=== PATIENT | female | born 1970 | race Two or more races ===

== ENCOUNTER → 2016-08-14 | Outpatient (REF) | payer OTHER | LOC: M SFHCLERA 16:49 | PROVIDERS: ATTEND Nurse Practitioner Family | DX: R10.31 Right lower quadrant pain (principal) ==

== ENCOUNTER → 2016-08-21 | Outpatient (CLI) | payer OTHER ==
--- NOTE | 2016-08-21 13:38 | REPMRS ---
Patient History The patient states she has not had a clinical breast exam in over a year. No known family history of cancer. Digital Mammo Screening Bilat: August 21, 2016 - Exam #: [id number] Bilateral CC and MLO view(s) were taken. Technologist: Jessica Vazquez, Technologist Prior study comparison: February 07, 2010, bilateral digital mammo screening bilat, performed at [facility]. The patient states that there are no palpable abnormalities or other breast complaints. There has been no change in the appearance of the mammogram from the prior studies. There is extremely dense fibroglandular tissue which is fairly symmetric. There is no interval development of dominant mass, areas of architectural distortion, or clustered microcalcification typical of malignancy. ASSESSMENT: BI-RADS/ACR category 1 mammogram. Negative. Recommendation Routine screening mammogram in 1 year (for women over age 40). This mammogram was interpreted with the aid of an FDA-approved computer-aided dectection system. A. Negative x-ray reports should not delay biopsy if a dominant or clinically suspicious mass is present. B. Not all cancers are identified by mammography. C. Adenosis and dense breast may obscure an underlying neoplasm. Electronically Signed By: Thomas Andrade M.D. 08/21/16 [id number]
== END ==
LOC: M RAD 10:49
PROVIDERS: ATTEND Nurse Practitioner Family
DX: Z12.31 Encounter for screening mammogram for malignant neoplasm of breast (principal)

== ENCOUNTER 2017-02-01 13:37 | Emergency (ER) | payer OTHER ==
[2017-02-01] MEDS: NS 1,000 ML IV ×2 (14:26)
[2017-02-01] MEDS: ONDANSETRON 4MG/2ML VIAL (J2405) IV ×2 (14:26)
[2017-02-01] MEDS: MORPHINE 4 MG/ML 1ML SYRINGE IV ×2 (14:27)
[2017-02-01 14:33] LABS: BASO # 0.1 10^3/uL (0.0-0.2); BASO % 0.7 % (0.0-1.0); EOS # 0.1 10^3/uL (0.0-0.50); EOS % 1.4 % (0.0-3.0); IMMATURE GRANULOCYTE % 0.3 % (0-0); LYMPH # 3.2 10^3/uL (1.5-4.5); LYMPH % 32.9 % (24.0-44.0); MEAN CORPUSCULAR HEMOGLOBIN 28.3 pg (27.0-33.0); MEAN CORPUSCULAR VOLUME 85.8 fl (80.0-96.0); MONO # 0.5 10^3/uL (0.0-0.8); MONO % 4.9 % (0.0-5.0); NEUTROPHILS # 5.8 10^3/uL (1.8-7.7); NEUTROPHILS % 59.8 % (36.0-66.0); PLATELET COUNT, AUTOMATED 312 10^3/uL (150-450); RED CELL DISTRIBUTION WIDTH 13.4 % (11.5-14.5); WHITE BLOOD COUNT 9.8 10^3/uL (4.0-10.0)
[2017-02-01 14:49] LABS: KETONE, URINE AUTO RFX TRACE mg/dL (NEGATIVE); LEUKOCYTE ESTERASE UR AUTO RFX NEGATIVE (NEGATIVE); NITRITE, URINE AUTO RFX NEGATIVE (NEGATIVE); RBC, URINE AUTO RFX 1 /HPF (0-3); SPECIFIC GRAVITY UR AUTO RFX 1.003 (1.002-1.035); SQUAM EPITHELIAL CELL UR AURFX 0 /HPF (0-6); WBC, URINE AUTO RFX 0 /HPF (0-3)
[2017-02-01] MEDS ORDERED: ISOVUE-370 76% 100ML VIAL (Q9967) As Ordered ×2 (15:05)
[2017-02-01 15:06] LABS: ALKALINE PHOSPHATASE 78 U/L (45-117); ALT/SGPT 81 U/L (12-78); ANION GAP 8 MEQ/L (8-16); AST/SGOT 60 U/L (7-37); BILIRUBIN,DIRECT < 0.1 MG/DL (0.0-0.2); BILIRUBIN,TOTAL 0.5 MG/DL (0.2-1.0); BLOOD UREA NITROGEN 8 MG/DL (7-18); CALCIUM LEVEL 9.2 MG/DL (8.5-10.1); CARBON DIOXIDE LEVEL 26 MEQ/L (21-32); CHLORIDE LEVEL 104 MEQ/L (98-107); CREATININE FOR GFR 0.56 MG/DL (0.55-1.02); GLOMERULAR FILTRATION RATE > 60.0 (>58); GLUCOSE, FASTING 102 MG/DL (70-105); POTASSIUM SERUM 3.8 MEQ/L (3.5-5.1); SODIUM LEVEL 138 MEQ/L (136-145)
== END 2017-02-01 16:05 | disposition home or self-care (01) ==
LOC: M ED 13:37
DX: K80.50 Calculus of bile duct without cholangitis or cholecystitis without obstruction (principal)
CPT/HCPCS: J2405

== ENCOUNTER → 2017-02-07 | Outpatient (CLI) | payer OTHER | LOC: M RAD 09:03 | DX: R10.11 Right upper quadrant pain (principal) | CPT/HCPCS: J2805 ==

== ENCOUNTER → 2017-11-12 | Outpatient (CLI) | payer OTHER ==
[2017-11-12 15:51] LABS: ALBUMIN 4.3 GM/DL (3.2-5.2); ALBUMIN/GLOBULIN RATIO 1.13 (1.00-1.93); ALKALINE PHOSPHATASE 80 U/L (45-117); ALT/SGPT 35 U/L (12-78); AST/SGOT 24 U/L (7-37); BILIRUBIN,DIRECT 0.2 MG/DL (0.0-0.2); BILIRUBIN,TOTAL 0.7 MG/DL (0.2-1.0); CHOLESTEROL LEVEL 235 MG/DL (<200); FERRITIN 11 NG/ML (8-252); HDL CHOLESTEROL 50 MG/DL (>40); IRON (FE) 211 UG/DL (50-170); LDL CHOLESTEROL 123 MG/DL (<100); NON-HDL-C 185 MG/DL; PERCENT SATURATION 57.8 % (13.2-45.0); TOTAL IRON BINDING CAPACITY 365 UG/DL (250-450); TOTAL PROTEIN 8.1 GM/DL (6.4-8.2); TRIGLYCERIDES LEVEL 311 MG/DL (<150)
[2017-11-12 16:01] LABS: HEPATITIS B SURFACE ANTIBODY POSITIVE (POSITIVE)
[2017-11-12 16:11] LABS: HEPATITIS B SURFACE ANTIGEN NEGATIVE (NEGATIVE)
[2017-11-12 16:39] LABS: HEPATITIS C VIRUS ABY INDEX < 0.0 INDEX (<0.8)
[2017-11-12 16:41] LABS: HEPATITIS A ANTIBODY IGM NEGATIVE (NEGATIVE)
[2017-11-15 11:17] LABS: ALPHA 2-MACROGLOBULINS,QN 203 mg/dL (110-276); ALT (SGPT) P5P 32 IU/L (0-40); ANTI-MITOCHONDRIAL ANTIBODY 4.1 Units (0.0-20.0); ANTINUCLEAR ANTIBODIES DIRECT Negative (Negative); APOLIPOPROTEIN A-1 155 mg/dL (116-209); AST (SGOT) P5P 28 IU/L (0-40); BILIRUBIN, TOTAL 0.3 mg/dL (0.0-1.2); CERULOPLASMIN 25.2 mg/dL (19.0-39.0); CHOLESTEROL TOTAL 237 mg/dL (100-199); FIBROSIS SCORE 0.14 (0.00-0.21); GGT 69 IU/L (0-60); GLUCOSE, SERUM 108 mg/dL (65-99); HAPTOGLOBIN 153 mg/dL (34-200); HEIGHT 63 in (.); HEPATITIS A IgG TOTAL Positive (Negative); LIVER-KIDNEY MICROSOMAL ABY 1.6 Units (0.0-20.0); NASH SCORE 0.75 (0.25); STEATOSIS SCORE 0.73 (0.00-0.30); TRIGLYCERIDES 302 mg/dL (0-149); WEIGHT 159 LBS (.)
[2017-11-15 11:17] LABS: ANTI-SMOOTH MUSCLE ANTIBODY 23 Units (0-19)
== END ==
LOC: M LAB 14:31
DX: R10.11 Right upper quadrant pain (principal)
CPT/HCPCS: 83010

== ENCOUNTER → 2017-11-13 | Outpatient (REF) | payer OTHER ==
[2017-11-15 00:07] LABS: H PYLORI STOOL ANTIGEN Negative (Negative)
== END ==
LOC: M LAB REF 13:35
DX: R10.11 Right upper quadrant pain (principal)

== ENCOUNTER → 2018-01-09 | Outpatient (CLI) | payer OTHER | LOC: M RAD 09:32 | DX: Z12.31 Encounter for screening mammogram for malignant neoplasm of breast (principal) | CPT/HCPCS: 77067 ==

== ENCOUNTER → 2019-02-28 | Outpatient (CLI) | payer OTHER ==
[~2019-02-28] MED LIST: IBUP-1022 PO; ZOFR4TAB14 PO
== END ==
LOC: M RAD 09:51
PROVIDERS: ATTEND Student in an Organized Health Care Education/Training Program
DX: Z53.9 Procedure and treatment not carried out, unspecified reason (principal)

== ENCOUNTER 2019-05-28 22:16 | Emergency (ER) | payer OTHER ==
[~2019-05-28] VITALS: Ht 160 cm; Wt 74.4 kg
[2019-05-28] MEDS ORDERED: ASPI81CH33 PO (22:22)
[2019-05-28] MEDS ORDERED: MULTCAP PO (22:22)
[2019-05-28 23:11] LABS: BASO # 0.1 10^3/uL (0.0-0.2); BASO % 0.6 % (0.0-1.0); EOS # 0.1 10^3/uL (0.0-0.5); EOS % 0.5 % (0.0-3.0); HEMATOCRIT 42.5 % (36.0-47.0); HEMOGLOBIN 13.9 g/dl (12.0-15.5); LYMPH # 2.4 10^3/uL (1.5-5.0); LYMPH % 22.7 % (24.0-44.0); MEAN CORPUSCULAR HGB CONC 32.7 g/dl (32.0-36.5); MEAN CORPUSCULAR VOLUME 85.7 fl (80.0-96.0); MONO # 0.6 10^3/uL (0.0-0.8); MONO % 5.4 % (0.0-5.0); NEUTROPHILS # 7.5 10^3/uL (1.5-8.5); NEUTROPHILS % 70.3 % (36.0-66.0); PLATELET COUNT, AUTOMATED 272 10^3/uL (150-450); RED BLOOD COUNT 4.96 10^6/uL (4.00-5.40); WHITE BLOOD COUNT 10.7 10^3/uL (4.0-10.0)
[2019-05-28] MEDS ORDERED: NS 1,000 ML IV ONE (23:15)
[2019-05-28] MEDS ORDERED: ISOVUE-370 76% 100ML VIAL As Ordered ONE (23:29)
[2019-05-28 23:45] LABS: ALBUMIN 3.8 GM/DL (3.2-5.2); ALT/SGPT 24 U/L (12-78); BILIRUBIN,DIRECT 0.1 MG/DL (0.0-0.2); BILIRUBIN,TOTAL 0.3 MG/DL (0.2-1.0); BLOOD UREA NITROGEN 7 MG/DL (7-18); CALCIUM LEVEL 9.4 MG/DL (8.5-10.1); CARBON DIOXIDE LEVEL 24 MEQ/L (21-32); CHLORIDE LEVEL 103 MEQ/L (98-107); CK-MB VALUE MASS < 1.0 NG/ML (<3.6); CPK CREATINE PHOSPHOKINASE 63 U/L (26-192); CREATININE FOR GFR 0.63 MG/DL (0.55-1.30); FREE T4 1.11 NG/DL (0.76-1.46); GLOMERULAR FILTRATION RATE > 60.0 (>58); GLUCOSE, FASTING 137 MG/DL (70-100); LIPASE 146 U/L (73-393); MAGNESIUM LEVEL 1.8 MG/DL (1.8-2.4); MB/CK RELATIVE INDEX 1.59 (< OR =4); NT-PRO BNP 56 PG/ML (<125); PHOSPHORUS LEVEL 3.3 MG/DL (2.5-4.9); POTASSIUM SERUM 3.7 MEQ/L (3.5-5.1); SODIUM LEVEL 135 MEQ/L (136-145); TOTAL PROTEIN 7.9 GM/DL (6.4-8.2); TROPONIN I < 0.02 NG/ML (< 0.10)
--- NOTE | 2019-05-29 00:19 | REPVR ---
PROCEDURE INFORMATION: Exam: CT Angiography Chest With Contrast Exam date and time: 05/28/2019 10:48 PM Age: 49 years old Clinical indication: Other: Tachycardia; Additional info: Tachycardic R/O pe TECHNIQUE: Imaging protocol: Computed tomographic angiography of the chest with intravenous contrast. 3D rendering: MIP and/or 3D reconstructed images were created by the technologist. Radiation optimization: All CT scans at this facility use at least one of these dose optimization techniques: automated exposure control; mA and/or kV adjustment per patient size (includes targeted exams where dose is matched to clinical indication); or iterative reconstruction. Contrast material: ISO; Contrast volume: 75 ml; Contrast route: AC; COMPARISON: CT ANGIO CHEST 2014-08-27 18:23 FINDINGS: Pulmonary arteries: No filling defects in the pulmonary arteries to suggest pulmonary emboli. Aorta: Unremarkable. No aortic aneurysm. No aortic dissection. Lungs: Unchanged 4 mm right upper lobe pleural based noncalcified pulmonary nodule. No abnormal airspace opacities. Pleural space: Unremarkable. No pneumothorax. No pleural effusion. Heart: Unremarkable. No cardiomegaly. No pericardial effusion. Lymph nodes: Unremarkable. No enlarged lymph nodes. Bones/joints: Unremarkable. No acute fracture. Soft tissues: Unremarkable. IMPRESSION: 1. No filling defects in the pulmonary arteries to suggest pulmonary emboli. 2. No abnormal airspace opacities. Electronically signed by: Joesph Andersen On 05/29/2019 00:18:45 AM
--- NOTE | 2019-05-29 01:23 | ECGEPIP ---
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
--- NOTE | 2019-05-29 03:26 | REP ---
Clinical: Acute chest pain . Comparison: 08/27/2014 . Findings: The mediastinum and cardiac silhouette are stable and within normal limits for portable technique. The lung burnett are clear without acute consolidation, effusion, or pneumothorax. Skeletal structures are intact. Impression: No acute cardiopulmonary process appreciated. Electronically Signed by Sai Irvin MD 05/29/2019 03:17 A
[2019-05-29 05:10] LABS: CK-MB VALUE MASS < 1.0 NG/ML (<3.6); CPK CREATINE PHOSPHOKINASE 51 U/L (26-192); MB/CK RELATIVE INDEX 1.96 (< OR =4); TROPONIN I < 0.02 NG/ML (< 0.10)
[2019-05-29] MEDS ORDERED: Holter Monitor (05:25)
[2019-05-29 05:32] VITALS: BP 130/88
--- NOTE | 2019-05-29 06:38 | ECGEPIP ---
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
== END 2019-05-29 05:32 | disposition home or self-care (01) ==
LOC: M ED 22:16
DX: R00.2 Palpitations (principal); R07.89 Other chest pain; R00.0 Tachycardia, unspecified; Z79.899 Other long term (current) drug therapy; Z79.82 Long term (current) use of aspirin
CPT/HCPCS: 36415; 71045; 71275; 80048; 80076; 82550; 82553; 83690; 83735; 83880; 84100; 84439; 84443; 84484; 85025; 93005; 93041; 94760; 99285; Q9967

== ENCOUNTER → 2019-05-29 | Outpatient (CLI) | payer OTHER ==
[~2019-05-29] MED LIST changes: +ASPI81CH33 PO; +Holter Monitor; +MULTCAP PO
--- NOTE | 2019-06-01 16:42 | HOLTMON ---
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 Underlying rhythm is sinus. Rate varied from 58-130 beats per minute. There were no significant pauses. There were no ventricular ectopic beats, and only 11 supraventricular beats noted. Patients diary showed "palpitations" and "shortness of breath". These were associated with sinus tachycardia with rate between 100-120 beats per minute. Based on this test (with siginificant artifact and minimal diary) there is no obvious cause for this patient's symptoms. Consider a repeat holter, an event recorder or a loop recorder as clinically indicated. Electronically Signed on 06-01-2019 16:42:00 EDT by Chetan Lyons
== END ==
LOC: M EKG 12:56
PROVIDERS: ATTEND Internal Medicine
DX: R00.2 Palpitations (principal)